=== PATIENT | male | born 1960 | race Caucasian/White ===

== ENCOUNTER 2020-04-19 02:41 | Outpatient (CLI) | payer MEDICARE, SELFPAY ==
[2020-04-19 18:16] LABS: SARS-CoV-2 RNA PCR Negative
== END 2020-04-19 02:42 | disposition home or self-care (01) ==
LOC: ANHCOVIDDT 02:41
PROVIDERS: PCP Family Medicine; Visit Provider Internal Medicine Gastroenterology
DX: Z01.812 Encounter for preprocedural laboratory examination (principal); Z20.828 Contact with and (suspected) exposure to other viral communicable diseases
CPT/HCPCS: 87635; C9803; U0003

== ENCOUNTER 2020-04-21 00:23 | Day surgery (SDC) | payer MEDICARE, SELFPAY ==
[2020-04-13 15:51] VITALS: BMI 25.8
[2020-04-21 08:17] VITALS: BP 124/66; PULSE 59; RESP 18; TEMP 36.5; O2SAT 95; BMI 23.8
[2020-04-21] MEDS: LACTATED RINGERS 1,000 ML 150 ML IV CONT (08:28)
--- NOTE | 2020-04-21 08:40 | WPDGICN ---
Assessment and Plan Assessment and plan (1) Chronic GERD: Code(s): K21.9 - Gastro-esophageal reflux disease without esophagitis Status: Acute Assessment and Plan: Patient has a long history of GE reflux disease because of chronicity of symptoms an EGD will be performed. Patient does have a family history of gastric cancer. And has had difficulty taking several proton pump inhibitors. Plan is to continue Protonix further recommendations may be given after endoscopy. Anti-reflux measures should continue long-term as well. (2) Encounter for screening colonoscopy: Code(s): Z12.11 - Encounter for screening for malignant neoplasm of colon Status: Acute Assessment and Plan: Screening colonoscopy advised because of patient's age. This report follow separately. Patient has had diarrhea which may be related to proton pump inhibitor use. This will be evaluated time of endoscopy as well. GI Consult Note Consult date/time: 04/21/20 08:40 HPI: Lew Berry is a 59 year old male seen in evaluation at the request of Dr Brambila. Patient reports a long history of acid reflux. He complains of heartburn. This is worsened over the last 9 months. Previously treated with famotidine. He was given Prilosec but this was limited by diarrhea. Subsequently also discontinue Nexium because of diarrhea. Currently tried on Protonix and he feels much better tolerating the medications period with no heartburn. He presents today for EGD. Additionally patient complains of diarrhea a intermittently about 1 time a week. He denies any fever. He has had no bleeding. His weight has remained stable. Diarrhea has worsened over the last 9-10 months. He is reports no travel or change in diet. Family history is significant his father with stomach cancer. Review of Systems Review of Systems: All systems reviewed & are unremarkable except as noted in HPI and below [facility] Family History Family History (System 01/28/20 @ 08:49 by Jeff Pabon) Other Diabetes mellitus Family history of arthritis Family history of cardiovascular disease Hypertension Social History Social History (System 01/28/20 @ 08:49 by Jeff Pabon) Smoking packs per day: 1.5 Smoking cigarettes per day: 30.0 Years smoked: 35 Smoking pack-years: 52.50 Smoking status: Former smoker Tobacco type: cigarettes Alcohol intake: current Drinks per week: 20 Alcohol use details: 20 TO 25 BEERS PER WEEK Substance use: current Substance use type: other Other substance usage details: HAS MEDICAL MARIJUANA CARD BUT USES CBD CREAM AND OIL TOPICALLY Living arrangements: with family Spiritual care concerns: No Meds Home Medications and Allergies Home Medications Medication Instructions Recorded Confirmed Type ascorbic acid (vitamin C) [Vitamin 250 mg PO DAILY 04/13/20 04/13/20 History C] aspirin [Adult Low Dose Aspirin] 81 mg PO DAILY 04/13/20 04/13/20 History cyanocobalamin (vitamin B-12) 500 mcg PO DAILY 04/13/20 04/13/20 History [Vitamin B-12] diazepam 5 mg PO BID PRN 04/13/20 04/13/20 History folic acid 0.4 mg PO DAILY 04/13/20 04/13/20 History levothyroxine 112 mcg PO DAILY 04/13/20 04/13/20 History nebivolol [Bystolic] 10 mg PO DAILY 04/13/20 04/13/20 History pantoprazole 40 mg PO QAM 04/13/20 04/13/20 History rosuvastatin 5 mg PO DAILY 04/13/20 04/13/20 History tamsulosin 0.4 mg PO DAILY 04/13/20 04/13/20 History Allergies Allergy/AdvReac Type Severity Reaction Status Date / Time No Known Allergies Allergy Verified 04/21/20 07:59 Vital Signs Vital Signs - 24 hr 04/21/20 08:17 Temperature 97.7 F Pulse Rate 59 L Respiratory Rate 18 Blood Pressure 124/66 Pulse Oximetry 95 Exam Narrative: Exam Narrative: Physical exam reveals patient to be alert. Vital signs stable. HEENT exam unremarkable. Lungs are clear to auscultation and percussion. Heart is without
--- NOTE | 2020-04-21 09:08 | WPDANESEPPF ---
Anes - Initial Pre Proc Eval Procedure: Operation Date: 04/21/20 10:00 Proposed Procedures p Esophagogastroduodenoscopy & Screening Colonoscopy - Robbin Lutz MD Date/Time: 04/21/20 09:08 Surgeon: Robbin Lutz MD Pre Op Diagnosis: neoplasm screening, GERD Patient Data Age: 59 Gender: M Height: 5 ft 11 in Weight: 77.4 kg Last Vital Signs Temp 97.7 F 04/21/20 08:17 Pulse 59 L 04/21/20 08:17 Resp 18 04/21/20 08:17 BP 124/66 04/21/20 08:17 Pulse Ox 95 04/21/20 08:17 Allergies Allergy/AdvReac Type Severity Reaction Status Date / Time No Known Allergies Allergy Verified 04/21/20 07:59 Home Medications Medication Instructions Recorded Confirmed Type ascorbic acid (vitamin C) [Vitamin 250 mg PO DAILY 04/13/20 04/13/20 History C] aspirin [Adult Low Dose Aspirin] 81 mg PO DAILY 04/13/20 04/13/20 History cyanocobalamin (vitamin B-12) 500 mcg PO DAILY 04/13/20 04/13/20 History [Vitamin B-12] diazepam 5 mg PO BID PRN 04/13/20 04/13/20 History folic acid 0.4 mg PO DAILY 04/13/20 04/13/20 History levothyroxine 112 mcg PO DAILY 04/13/20 04/13/20 History nebivolol [Bystolic] 10 mg PO DAILY 04/13/20 04/13/20 History pantoprazole 40 mg PO QAM 04/13/20 04/13/20 History rosuvastatin 5 mg PO DAILY 04/13/20 04/13/20 History tamsulosin 0.4 mg PO DAILY 04/13/20 04/13/20 History Patient hx anesthesia problems: none Family hx anesthesia problems: none PMFSH Past Medical History Medical History (Updated 04/21/20 @ 09:08 by Johan Newton MD) CAD (coronary artery disease) Hyperlipidemia Hypertension Hypothyroid [place] (obstructive sleep apnea) Surgical History Surgical History (Updated 04/21/20 @ 09:08 by Johan Newton MD) Stented coronary artery Family History Family History (System 01/28/20 @ 08:49 by Jeff Pabon) Other Diabetes mellitus Family history of arthritis Family history of cardiovascular disease Hypertension Social History Social History (System 01/28/20 @ 08:49 by Jeff Pabon) Smoking packs per day: 1.5 Smoking cigarettes per day: 30.0 Years smoked: 35 Smoking pack-years: 52.50 Smoking status: Former smoker Tobacco type: cigarettes Alcohol intake: current Drinks per week: 20 Alcohol use details: 20 TO 25 BEERS PER WEEK Substance use: current Substance use type: other Other substance usage details: HAS MEDICAL MARIJUANA CARD BUT USES CBD CREAM AND OIL TOPICALLY Living arrangements: with family Spiritual care concerns: No Anes - Eval Final PreProcedure Day of Procedure 04/21/20 09:08 Patient weight: normal Heart: regular rate and rhythm Lungs: clear to auscultation Airway: Mallampati scale class II Neurological: alert and oriented Last oral intake: >/= 8 hours ASA classification: III Emergent: no Anesthetic plan: proceed Anesthesia type and monitoring: general GIVS and standard monitoring Informed Consent: The patient's anesthetic plan and its attendant risks and benefits were discussed with the patient/family/POA. Questions were solicited and answers provided to the satisfaction of the patient/family/POA.
[2020-04-21] MEDS: BENZOCAINE (*SP) 60 ML SPRAY CAN (HURRICAINE) 1 SPRAY MUCOUS MEM (09:19)
[2020-04-21 09:41] VITALS: BP 129/74; PULSE 56; RESP 16; O2SAT 97
[2020-04-21 09:51] VITALS: BP 140/96; PULSE 56; RESP 16; O2SAT 98
[2020-04-21 10:01] VITALS: BP 162/83; PULSE 47; O2SAT 98
== END 2020-04-21 10:20 | disposition home or self-care (01) ==
PROVIDERS: PCP Family Medicine; Visit Provider Internal Medicine Gastroenterology
PROC: 0DJ08ZZ Inspection of Upper Intestinal Tract, Via Natural or Artificial Opening Endoscopic (ICD-10-PCS; CPT 43235; principal; 2020-04-21 10:00)
DX: Z12.11 Encounter for screening for malignant neoplasm of colon (principal); K63.5 Polyp of colon; K64.8 Other hemorrhoids; K57.30 Diverticulosis of large intestine without perforation or abscess without bleeding; K21.9 Gastro-esophageal reflux disease without esophagitis; Z80.0 Family history of malignant neoplasm of digestive organs; Z87.891 Personal history of nicotine dependence; I25.10 Atherosclerotic heart disease of native coronary artery without angina pectoris; E78.5 Hyperlipidemia, unspecified; E03.9 Hypothyroidism, unspecified; G47.33 Obstructive sleep apnea (adult) (pediatric); Z95.5 Presence of coronary angioplasty implant and graft
CPT/HCPCS: 43235; 45385; 45380; 88305; J2704; J7120

== ENCOUNTER 2020-11-14 12:17 | Outpatient (CLI) | payer MEDICARE, SELFPAY ==
--- NOTE | ~2020-11-14 | XR_ITS ---
EXAMINATION: XR chest 2V DATE: 11/14/2020 12:53 INDICATION: Chest tightness. Shortness of breath. TECHNIQUE: Frontal and lateral views of the chest were obtained. COMPARISON: Chest 2 views 08/01/2016 FINDINGS: There is mild scarring at the lung apices. No pleural effusion or pneumothorax. The heart s ize is normal. IMPRESSION: 1. Mild scarring at the lung apices. Reviewed, dictated and finalized at location A.
[2020-11-14 12:44] LABS: Basophils Percent Auto 1.2 % (0.2-1.2); Eosinophils Absolute Auto 0.1 K/mm3 (0-0.3); Eosinophils Percent Auto 2.1 % (0-4.4); Hematocrit 34.2 % (42.0-52.0); Hemoglobin 11.2 g/dL (14.0-18.0); Immature Granulocyte Absolute 0.01 K/mm3 (0.00-0.031); Immature Granulocyte Percent A 0.3 % (0-0.5); Lymphocytes Absolute Auto 0.82 K/mm3 (0.9-3.2); Lymphocytes Percent Auto 25.2 % (18.3-44.2); Mean Corpuscular HGB Conc 32.7 g/dl (32-36); Mean Corpuscular Hemoglobin 34.6 pg (26-34); Mean Corpuscular Volume 105.6 fl (80-100); Mean Platelet Volume 8.8 fl (7.4-10.4); Monocytes Absolute Auto 0.3 K/mm3 (0.1-0.6); Monocytes Percent Auto 10.4 % (2.6-8.5); Neutrophils Percent Auto 60.8 % (45.5-73.1); Platelet Count Result 215 k/mm3 (150-375); Red Blood Count 3.24 M/mm3 (4.6-6.20); Red Cell Distribution Width 12.1 % (11.5-14.5); White Blood Count 3.3 K/mm3 (4.5-10.0)
[2020-11-14 12:55] LABS: Alanine Aminotransferase 26 U/L (4-50); Albumin Level 3.9 g/dL (3.5-5.1); Alkaline Phosphatase 86 U/L (38-126); Anion Gap 5 mmol/L (8-16); Aspartate Amino Transferase 41 U/L (17-59); Bilirubin,Total 0.6 mg/dL (0.2-1.3); Blood Urea Nitrogen 13 mg/dL (9-20); Carbon Dioxide 27 mmol/L (22-30); Chloride 106 mmol/L (98-107); Estimated Glomerular Filt Rate 57; Glucose 103 mg/dL (75-110); Potassium 4.5 mmol/L (3.4-5.0); Sodium 138 mmol/L (137-145)
[2020-11-14 13:06] LABS: Troponin I < 0.012 ng/mL (0.000-0.034)
== END 2020-11-14 12:18 | disposition home or self-care (01) ==
PROVIDERS: PCP Family Medicine; Visit Provider Nurse Practitioner Adult Health
DX: I25.10 Atherosclerotic heart disease of native coronary artery without angina pectoris (principal); R07.89 Other chest pain; R91.8 Other nonspecific abnormal finding of lung field
CPT/HCPCS: 36415; 71046; 80053; 84484; 85025

== ENCOUNTER → 2023-08-08 11:42 | Outpatient (CLI) | payer MEDICARE, SELFPAY ==
--- NOTE | ~2023-08-08 | CT_ITS ---
EXAMINATION: CT shoulder RT wo con DATE: 08/08/2023 11:58 INDICATION: Right shoulder pain TECHNIQUE: High resolution computed tomography (CT) of the right shoulder was performed without intra venous contrast. Additional sagittal and coronal reconstructions were performed. Automated exposure c ontrol and iterative reconstruction technique were employed. The dose-length product was 362.03 mGy-c m. COMPARISON: None FINDINGS: Bone alignment is normal. No acute fracture. Irregular cortical contour with hypertrophic change erika g the anterior margin of the lateral head of the clavicle with location and appearance suggesting eit her old healed fracture or heterotopic ossification along the joint capsule in response to a chronic acromioclavicular joint separation. Small anterior subacromial spur. 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 Glenohumeral joint space appears relatively preserved with tiny marginal o steophytes along the glenoid. No glenohumeral joint effusion or other abnormal fluid collections. The re are mild cystic change along the greater tuberosity which can be seen in the setting of chronic ro tator cuff disease. No asymmetric atrophy of the rotator cuff or other musculature of the shoulder gi rdle. No pathologically enlarged lymph nodes at the right axilla or visualized right side of the medi astinum. Mild emphysema. IMPRESSION: 1. 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 No acute osseous abnormality. Reviewed, dictated and finalized at location A. [employer] IMPRESSION: 1. Mild right glenohumeral and moderate to severe chromic clavicular osteoarthr itis. No acute osseous abnormality.
== END ==
PROVIDERS: PCP Family Medicine; Visit Provider Family Medicine Sports Medicine
DX: S42.034A Nondisplaced fracture of lateral end of right clavicle, initial encounter for closed fracture (principal); M19.011 Primary osteoarthritis, right shoulder; X58.XXXA Exposure to other specified factors, initial encounter; Z87.81 Personal history of (healed) traumatic fracture
CPT/HCPCS: 73200